=== PATIENT | female | born 1995 | race Caucasian/White ===

== ENCOUNTER 2018-04-25 11:19 | Emergency (ER) | payer OTHER, SELFPAY, BC | END 2018-04-25 13:29 | disposition home or self-care (01) | LOC: M ED 11:19 | DX: K04.7 Periapical abscess without sinus (principal) | CPT/HCPCS: 99282 ==

== ENCOUNTER → 2020-06-07 | Outpatient (REF) | payer OTHER ==
[~2020-06-07] MED LIST: AUGM500T34 PO; HYDR-3715 PO; IBUP1TAB6 PO; MAGICMW MT; TYLE325T5 PO
[2020-07-17 13:37] LABS: CHLAMYDIA DNA AMPLIFICATION NEGATIVE (NEGATIVE); GC DNA AMPLIFICATION NEGATIVE (NEGATIVE)
[2020-07-31 11:19] LABS: BASO % 0.3 % (0.0-1.0); EOS # 0.1 10^3/uL (0.0-0.5); EOS % 1.3 % (0.0-3.0); HEMATOCRIT 37.6 % (36.0-47.0); HEMOGLOBIN 12.5 g/dl (12.0-15.5); LYMPH % 19.1 % (24.0-44.0); MEAN CORPUSCULAR HEMOGLOBIN 29.4 pg (27.0-33.0); MEAN CORPUSCULAR HGB CONC 33.2 g/dl (32.0-36.5); MEAN CORPUSCULAR VOLUME 88.5 fl (80.0-96.0); MONO # 0.7 10^3/uL (0.0-0.8); MONO % 7.2 % (0.0-5.0); NEUTROPHILS # 7.4 10^3/uL (1.5-8.5); NEUTROPHILS % 71.5 % (36.0-66.0); PLATELET COUNT, AUTOMATED 232 10^3/uL (150-450); RED BLOOD COUNT 4.25 10^6/uL (4.00-5.40); WHITE BLOOD COUNT 10.3 10^3/uL (4.0-10.0)
[2020-08-02 02:38] LABS: GLUCOSE CHALLENGE TEST 1 HOUR 101 MG/DL (LESS THAN 140); HEPATITIS C VIRUS ABY INDEX 0.2 INDEX (<0.8); HIV 1&2 SCREEN CENTAUR NEGATIVE (NEGATIVE)
== END ==
LOC: M SFHCWAGY 11:17
PROVIDERS: ATTEND Advanced Practice Midwife
DX: Z12.4 Encounter for screening for malignant neoplasm of cervix (principal)

== ENCOUNTER → 2020-07-08 | Outpatient (CLI) | payer OTHER | LOC: M PLALAB 11:20 | PROVIDERS: ATTEND Advanced Practice Midwife | DX: Z34.02 Encounter for supervision of normal first pregnancy, second trimester (principal) ==

== ENCOUNTER → 2020-07-29 | Outpatient (CLI) | payer MEDICAID, OTHER ==
--- NOTE | 2020-08-08 14:51 | REP ---
OBSTETRIC SONOGRAPHY HISTORY: Supervision of for anatomy. FINDINGS: Scanning through the gravid uterus demonstrates a single living intrauterine gestation in the transverse, head to the maternal left lie. The placenta is anterior, grade 0, without evidence of previa. Three vessel umbilical cord is seen. heart rate is recorded at 149 beats per minute. Amniotic fluid is subjectively normal. Exam quality is inhibited to some degree by maternal body habitus. nose and lips, four chamber heart with left and right ventricular outflow tract views are less than optimally seen due to position and maternal body habitus. The following additional anatomic structures are identified and felt to be unremarkable: cranium, intracranial anatomy, facial profile, diaphragm, left-sided stomach, kidneys and urinary bladder, spine, upper and lower extremities. BIOMETRY CHART: BPD 4.1 cm 18 weeks 4 days Head Circumference 15.2 cm 18 weeks 2 days Abdominal Circumference 12.3 cm 18 weeks 0 days Femur Length 2.8 cm 18 weeks 4 days Humeral Length 2.7 cm 18 weeks 4 days HC/AC ratio normal 1.24 Cephalic index normal 0.76 Estimated Weight 230 g, 0 pounds 8 ounces 41st percentile for 18 weeks 2 days IMPRESSION: Viable single intrauterine gestation at 18 weeks 3 days by todays composite sonographic criteria. CHUN by todays sonography December 27, 2020. anatomic survey less than complete regarding heart and facial structures. Transverse lie. MTDD
== END ==
LOC: M WHC 09:48
PROVIDERS: ATTEND Advanced Practice Midwife
DX: O32.2XX0 Maternal care for transverse and oblique lie, not applicable or unspecified (principal); Z36.89 Encounter for other specified antenatal screening; Z3A.18 18 weeks gestation of pregnancy

== ENCOUNTER → 2020-08-11 | Outpatient (CLI) | payer OTHER ==
--- NOTE | 2020-08-11 10:31 | REP ---
INDICATION: F/U ANATOMY COMPARISON: 07/29/2020 TECHNIQUE: Transabdominal obstetrical ultrasound with color Doppler evaluation. FINDINGS: Examination demonstrates a single live intrauterine in transverse with head to maternal right presentation. motion is identified by technologist. Placenta is noted anterior and grade 1 without evidence for placenta previa or abruption. Amniotic fluid volume is normal. Cervix measures 3.1 cm in length and appears closed. No evidence for nuchal cord. Gestational age by LMP 20 weeks 1 day with CHUN 12/28/2020. Gestational age by current measurements 20 weeks 4 days with CHUN 12/25/2020. FHR equals 150 beats per minute. Estimated weight 341 grams (54thpercentile). Anatomical assessment demonstrates normal structures including cranium, facial features, lungs, four-chamber heart/ventricular outflow tracts, stomach, and kidneys/bladder. IMPRESSION: Single live intrauterine demonstrating appropriate interval growth. In conjunction with the prior examination interval assessment is complete and normal. <Electronically signed by Connor Sheth > 08/11/20 [id number]
== END ==
LOC: M WHC 09:24
PROVIDERS: ATTEND Obstetrics & Gynecology
DX: Z34.82 Encounter for supervision of other normal pregnancy, second trimester (principal)

== ENCOUNTER → 2020-10-05 | Outpatient (REF) | payer OTHER ==
[2020-10-05 14:10] LABS: HEMATOCRIT 35.4 % (36.0-47.0); HEMOGLOBIN 11.7 g/dl (12.0-15.5); MEAN CORPUSCULAR HEMOGLOBIN 29.5 pg (27.0-33.0); MEAN CORPUSCULAR HGB CONC 33.1 g/dl (32.0-36.5); MEAN CORPUSCULAR VOLUME 89.4 fl (80.0-96.0); PLATELET COUNT, AUTOMATED 219 10^3/uL (150-450); RED BLOOD COUNT 3.96 10^6/uL (4.00-5.40); WHITE BLOOD COUNT 13.5 10^3/uL (4.0-10.0)
[2020-10-05 14:35] LABS: CREATININE,RANDOM URINE 66.8 MG/DL; TOTAL PROTEIN,RANDOM URINE 13.5 MG/DL (0.0-12.0)
[2020-10-05 14:38] LABS: ALBUMIN 2.9 GM/DL (3.2-5.2); ALT/SGPT 44 U/L (12-78); BILIRUBIN,TOTAL 0.3 MG/DL (0.2-1.0); BLOOD UREA NITROGEN 6 MG/DL (7-18); CALCIUM LEVEL 8.9 MG/DL (8.5-10.1); CARBON DIOXIDE LEVEL 25 MEQ/L (21-32); CHLORIDE LEVEL 106 MEQ/L (98-107); CREATININE FOR GFR 0.56 MG/DL (0.55-1.30); GLOMERULAR FILTRATION RATE > 60.0 (>60); GLUCOSE, FASTING 98 MG/DL (70-100); LDH LACTATE DEHYDROGENASE 139 U/L (84-246); POTASSIUM SERUM 3.5 MEQ/L (3.5-5.1); SODIUM LEVEL 138 MEQ/L (136-145); TOTAL PROTEIN 6.4 GM/DL (6.4-8.2)
== END ==
LOC: M PLALAB 09:23
PROVIDERS: ATTEND Advanced Practice Midwife
DX: O16.3 Unspecified maternal hypertension, third trimester (principal); Z3A.00 Weeks of gestation of pregnancy not specified

== ENCOUNTER → 2020-11-22 | Outpatient (REF) | payer OTHER | LOC: M PLALAB 14:04 | PROVIDERS: ATTEND Obstetrics & Gynecology | DX: R35.0 Frequency of micturition (principal) ==

== ENCOUNTER → 2020-11-30 | Outpatient (REF) | payer OTHER | LOC: M PLALAB 11-29 17:13 | PROVIDERS: ATTEND Obstetrics & Gynecology | DX: Z3A.36 36 weeks gestation of pregnancy (principal) ==

== ENCOUNTER 2020-12-24 22:33 | Inpatient (IN) | payer OTHER ==
[~2020-12-24] VITALS: Ht 167.6 cm; Wt 109.3 kg
[2020-12-24 22:59] VITALS: BP 147/76
[2020-12-25] VITALS (30 sets, daily range): BP systolic 97–142; BP diastolic 52–75
[2020-12-25] MEDS ORDERED: LACTATED RINGER'S 1000 ML IV STA (00:49)
[2020-12-25] MEDS ORDERED: BUTORPHANOL 2 MG/ML INJ (J0595) IV PRN (00:55)
[2020-12-25] MEDS ORDERED: PROMETHAZINE INJ 25 MG/ML VIAL (J2550) IV PRN (00:55)
--- NOTE | 2020-12-25 01:05 | HPEPDOC ---
Obstetrical History & Physical General Date of Admission 12/25/2020 History of Present Illness Barbie is a 25yo with SIUP at 39w4d by 10wk u/s presenting with regular painful ctx increasing in frequency and intensity over the course of the day. She called me early in the day and noted regular ctx 10min apart. Since that time they have become 3-5min apart and strong, she breathes through them. Good FM. No LOF. No vaginal bleeding. 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 Past Medical History Medical History Obesity Surgical History: Tonsilectomy Family History Significant Family History: No pertinent family hx Social History Marital Status: Other (life partner) Family situation: Spouse/partner home Psychosocial History: No pertinent psych hx * Smoker: non-smoker Alcohol: Denies Drugs: denies Imunizations Tdap status: current Allergies Coded Allergies: latex (Verified Allergy, Severe, rash, swelling, 12/24/20) Medications Scheduled Amoxicillin/Potassium Clav (Augmentin 500-125 Tablet) 1 Tab Tab, 1 TAB PO BID Magic Mouthwash (First-Mouthwash Blm) 1 Ea Susp, 1 EA MT QID Scheduled PRN Acetaminophen (Tylenol) 325 Mg Tab, 1,000 MG PO for PAIN Hydrocodone/Acetaminophen (Hydrocodone-Acetamin 5-325 mg) 1 Tab Tab, 1 TAB PO Q6H PRN for PAIN Ibuprofen (Ibuprofen) 600 Mg Tab, 600 MG PO PRN PRN for PAIN with food Physical Examination Physical Examination GENERAL: Alert and oriented times three. ABDOMEN: Gravid and non-tender to touch. FETUS: Is vertex (VTX) by sterile vaginal examination (SVE) EXTREMITIES: No edema of BLE Vital Signs/I&O Vital Signs Date Time Temp Pulse Resp B/P (MAP) Pulse Ox O2 Delivery O2 Flow Rate FiO2 12/25/20 00:39 97.2 12/24/20 22:59 82 18 147/76 (99) Pertinent Laboratoy Data Blood Type: B+ RBC Antibody Screen: Negative HIV: Negative Hepatitis B: Negative Hepatitis C: Negative Rapid Plasma Reagin: Nonreactive Rubella: Immune Chlamydia/Gonorrhea: Negative Group B Streptococcus: Negative Glucose Tolerance Test: 97 Anatomy Ultrasound Ultrasound Date: Jul 29, 2020 Placenta Location: Anterior Normal Anatomy: Yes Placenta Previa: No Other Ultrasounds 08/11 anatomy follow up, complete wnl Vaginal Examination Dilation: 4 cm Effacement: 90% Station: -2 Cervical Consistency: Soft Cervical Position: Middle Presentation: Cephalic presentation Assessment Heart Rate (FHR): 135 Variability: Moderate Accelerations: Positive Decelerations: None Tocometer Contractions: Yes Frequency: regular, every 2-5 min. Duration: greater than 60 seconds Strength: palpated as moderate Assessment/Plan Assessment Barbie is a 25yo with SIUP at 39w4d by 10wk u/s in active labor with SCE 4/90/-2 from 3/80/-2 only 2hr prior having regular painful ctx q3-5min. 1st bp mild range other vitals wnl, no sx pre-E. Cephalic by SCE. Cat I FHRT. PMhx and PNC only significant for obesity with normal glucose testing. Plan Admit and orient. Data Warehousing Engineer and consent. Diet: clear liquids Group B Streptococcus (GBS) negative Labs and intravenous (IV) per unit protocol. Lactated Ringers (LR): Bolus 800 mL, then at 125 mL/hr. Anticipate normal spontaneous delivery () 2mg IV stadol every 4hr prn pain with 12.5mg IV phenergan, candidate for epid ural in active labor Christine Lemos MD Dec 25, 2020 01:04
[2020-12-25 01:22] LABS: HEMATOCRIT 36.9 % (36.0-47.0); HEMOGLOBIN 12.5 g/dl (12.0-15.5); MEAN CORPUSCULAR HEMOGLOBIN 28.9 pg (27.0-33.0); MEAN CORPUSCULAR HGB CONC 33.9 g/dl (32.0-36.5); MEAN CORPUSCULAR VOLUME 85.2 fl (80.0-96.0); PLATELET COUNT, AUTOMATED 243 10^3/uL (150-450); RED BLOOD COUNT 4.33 10^6/uL (4.00-5.40); WHITE BLOOD COUNT 15.7 10^3/uL (4.0-10.0)
[2020-12-25] MEDS ORDERED: FENTANYL 2MCG/ML ROPIVACAINE 0.2% IN 0.9% NACL 100ML IVBAG As Ordered ONE (04:51)
[2020-12-25] MEDS ORDERED: OXYTOCIN 30 UNITS IN 0.9% NaCl 500ML IV BAG (J2590) As Ordered ONE ×2 (05:27→08:50)
--- NOTE | 2020-12-25 07:05 | IPNPDOC ---
Text Note Date of Service The patient was seen on 12/25/20. NOTE Intrapartum Note Barbie is doing well overall, by RN check was felt to have reducible anterior lip and pushed for approximately 1hr with no real progress so stopped and she has been laboring down. Still declining epidural. Vitals normotensive to occasional mild range, afebrile Cat I-II FHRT, currently has min arun but +accels and no decels SCE: anterior lip with very thin rim posteriorly so technically 9cm/C/-1 station, OP No further pushing until cervix fully dilates Patient to try "hands and knees" positioning to attempt rotation of fetus Patient asking for stadol but discussed cannot give currently due to minimal variability on FHRT, but still a candidate for epidural if desired Will plan to recheck in 1-2hr or earlier as indicated Safe to proceed Christine Lemos MD VS,Mo, I+O VS, Mo I+O Laboratory Tests 12/25/20 01:00 Vital Signs Date Time Temp Pulse Resp B/P (MAP) Pulse Ox O2 Delivery O2 Flow Rate FiO2 12/25/20 04:10 97.7 89 18 142/63 (89) Christine Lemos MD Dec 25, 2020 07:05
[2020-12-25] MEDS ORDERED: BICITRA 30ML SOLN UDC PO STA (08:19)
[2020-12-25] MEDS ORDERED: ceFAZolin SOD 2 GM in IV 1 EA IV STA (08:19)
--- NOTE | 2020-12-25 08:24 | IPNPDOC ---
Text Note Date of Service The patient was seen on 12/25/20. NOTE Decision for section Patient has epidural, now comfortable. Vitals wnl afebrile Persistent Cat II FHRT for min arun with +accels, -decels SCE: unchanged 9/C/-1 with thick anterior portion Discussed with patient that it has now been at least 3 hours with no cervical change and since there is persistent Cat II FHRT, I recommend PLTCS which she is amenable to. Signed consent forms for PLTCS and blood transfusion, all r/b/a discussed Bicitra Anceph 2g IV NPO Will proceed to OR when team is ready Christine Lemos MD VS,Mo, I+O VS, Mo I+O Laboratory Tests 12/25/20 01:00 Vital Signs Date Time Temp Pulse Resp B/P (MAP) Pulse Ox O2 Delivery O2 Flow Rate FiO2 12/25/20 07:44 121 123/56 (78) 12/25/20 07:09 98.4 18 Christine Lemos MD Dec 25, 2020 08:24
[2020-12-25] MEDS ORDERED: NALOXONE INJ 0.4MG/1ML VIAL (J2310 PER 1MG) IV PRN ×3 (08:25→09:05)
[2020-12-25] MEDS ORDERED: LACTATED RINGER'S 1000 ML IV PRN (08:25)
[2020-12-25] MEDS ORDERED: REFRIGERATOR IV KEYS XX PRN (08:25)
[2020-12-25] MEDS ORDERED: FENTANYL/ROPIVACAINE/NACL BAG 100 ML EPIDURAL SCH (08:25)
[2020-12-25] MEDS ORDERED: diphenhydrAMINE 50MG/ML VIAL (J1200) IV PRN ×2 (08:25→09:05)
[2020-12-25] MEDS ORDERED: ePHEDrine SULFATE 25 MG/5 ML(5MG/ML) SYRINGE IV PRN (08:25)
[2020-12-25] MEDS ORDERED: EPIDURAL COMMENT XX SCH (08:25)
[2020-12-25] MEDS ORDERED: EPIDURAL/PCA KEYS XX PRN (08:25)
[2020-12-25] MEDS ORDERED: ONDANSETRON 4MG/2ML VIAL IV PRN ×3 (08:25→10:20)
[2020-12-25] MEDS: LR 1,000 ML IV SCH ×3 (08:49→16:49)
[2020-12-25] MEDS ORDERED: MORPHINE PRES-FREE INJ 10 MG/10 ML VIAL (J2274) As Ordered ONE (08:49)
[2020-12-25] MEDS ORDERED: KETOROLAC 60MG 2ML VIAL As Ordered ONE (08:50)
[2020-12-25] MEDS ORDERED: LIDOCAINE 2% W/EPINEPHRINE 20ML VIAL **PRES FREE As Ordered ONE (08:50)
[2020-12-25] MEDS ORDERED: ONDANSETRON 4MG/2ML VIAL As Ordered ONE (08:50)
[2020-12-25] MEDS ORDERED: dexameTHASONE 4 MG/ML 1ML VIAL (J1100 PER 1MG) As Ordered ONE (08:50)
[2020-12-25] MEDS ORDERED: SODIUM BICARBONATE 8.4% INJ 50MEQ 50 ML VIAL As Ordered ONE (08:50)
[2020-12-25] MEDS ORDERED: PHENYLephrine 500MCG 5ML (100MCG/ML) SYRINGE As Ordered ONE ×2 (08:58→09:33)
[2020-12-25] MEDS ORDERED: METOCLOPRAMIDE INJ 10MG/2ML VIAL (J2765 PER 1) IV PRN (09:05)
[2020-12-25] MEDS ORDERED: PERCOCET 5MG/325MG TAB PO PRN ×2 (10:15)
[2020-12-25] MEDS ORDERED: MEASLES,MUMPS,RUBELLA VACCINE INJ (MMR-II) (90707) SC SCH (10:15)
[2020-12-25] MEDS ORDERED: SIMETHICONE 80MG CHEW TAB PO PRN (10:15)
[2020-12-25] MEDS ORDERED: RHOGAM 300 MCG (1500 IU) INJ (J2790) IM SCH (10:15)
[2020-12-25] MEDS ORDERED: LR 1,000 ML IV SCH (10:20)
[2020-12-25] MEDS ORDERED: KETOROLAC 30 MG/ML 1ML VIAL IV PRN (10:20)
[2020-12-25] MEDS ORDERED: oxyCODONE 5MG TAB PO PRN (10:20)
[2020-12-25] MEDS ORDERED: fentaNYL 100 MCG/2 ML INJECTION (J3010) IV PRN (10:20)
[2020-12-25] MEDS ORDERED: OXYTOCIN DRIP 30 UNITS in IV 1 EA IV SCH (10:30)
--- NOTE | 2020-12-25 12:36 | RO ---
OPERATIVE NOTE DATE OF OPERATION: 12/25/2020 PREOPERATIVE DIAGNOSIS: Arrest of dilation in the setting of persistent category 2 heart rate tracing. POSTOPERATIVE DIAGNOSIS: Arrest of dilation in the setting of persistent category 2 heart rate tracing, in addition, asynclitic presentation. PROCEDURE: Primary low transverse section. SURGEON: Christine Lemos MD MEN'S BASKETBALL COACH: Thao Hayward DO ANESTHESIA: INDICATION FOR OPERATION: Barbie is a 25-year-old, G1, now P 1-0-0-1, who presented at 39 weeks, 4 days with regular, painful contractions that have been increasing in intensity over the course of the day. She progressed on her own, had spontaneous rupture of membranes, made it to 9 cm but then had no further progression after that for over three hours and developed a persistent category 2 heart rate tracing during that time. MATERIAL FORWARDED TO THE LAB FOR EXAMINATION: None. DESCRIPTION OF FINDINGS: Female infant in cephalic presentation, asynclitic, Apgars 9 and 9, weight 3410 gm or 7 lb, 8 oz. Normal appearing uterus. INFECTION CLASSIFICATION: 2. ESTIMATED BLOOD LOSS: 500 mL URINE OUTPUT: 100 mL of clear yellow urine. IV FLUIDS: 1950 mL of lactated Ringer's. DESCRIPTION OF PROCEDURE: After obtaining informed consent, the patient was taken to the operating room. She had a Adorno catheter in place and had received an epidural recently. Bilateral sequential compression devices were placed. She was prepped and draped in normal sterile fashion in the dorsal supine position with a left lateral tilt. A timeout was performed to confirm patient name, date of , procedure and indication. The team was in agreement. She received two grams of IV Ancef prophylactically. Epidural anesthesia was found to be adequate. A Pfannenstiel skin incision was made with the scalpel and carried through to the underlying layer of fascia using the Bovie cautery. The fascia was incised in the midline and the incision was extended laterally with Sifuentes scissors. Superior and inferior aspects of the fascial incision were grasped with Attila clamps, elevated and the underlying rectus muscles were dissected off bluntly and sharply. The peritoneum was entered digitally and the rectus muscles were in the midline. The peritoneal incision was extended superiorly and inferiorly with good visualization of the bladder. Bladder blade was inserted and the vesicouterine peritoneum was identified, grasped with pickups and entered sharply with the Metzenbaum scissors. The incision was extended laterally and the bladder flap was created digitally. A Mobius retractor was used. The lower uterine segment was scored in a transverse fashion with a scalpel. The uterus was entered bluntly and the incision was extended with traction. The 's head was elevated to the level of the incision. The FSE was still in place so that was brought up out of the body with the baby and fundal pressure was applied. The head was delivered atraumatically in WON position. It was asynclitic in the pelvis. The anterior shoulder, posterior shoulder and corpus were delivered without difficulty. The nose and mouth were suctioned with bulb suction. Cord was clamped x2 and cut. Infant was handed off to the awaiting team. FSE was removed at the warmer and it was counted in addition with all of the other surgical counts. The placenta was removed with traction on the umbilical cord and uterine massage and the uterus was left in situ and cleared of all clot and debris. The uterine incision was repaired with 0 Vicryl suture in a running locking fashion. A second layer of 0 Monocryl was used to close the hysterotomy incision in imbricating fashion. The uterine incision was inspected. Hemostasis was noted. The gutters were cleared of clots. At that point, the Mobius retractor was removed. [place] was applied along the hysterotomy incision and was noted to be hemostatic. The peritoneum was closed using a 3-0 Vicryl suture in a running fashion. The rectus muscles needed no reapproximation. The fascia was reapproximated with 0 Vicryl suture in a running fashion. The subcutaneous tissue was copiously irrigated. Tamar's fascia was reapproximated using 3-0 Vicryl suture in a running fashion. Skin edges were reapproximated using three inverted interrupted stitches using 3-0 Vicryl suture followed by a running subcuticular stitch using 4-0 Monocryl suture. The incision was cleaned using a wet lap, dried with a dry lap. Steri-Strips were applied in the usual fashion perpendicular to the Pfannenstiel incision and Optifoam dressing was applied overlying. The vagina was cleared of all blood clot without active bleeding noted. The fundus was firm at U minus 2 cm. The sponge, lap and needle counts were correct x2. The procedure was without complications and the patient tolerated the procedure well. The patient was taken to the recovery room on labor and delivery in stable condition.
[2020-12-25] MEDS: KETOROLAC 30 MG/ML 1ML VIAL IV SCH ×2 (16:12→22:16)
[2020-12-25] MEDS: DOCUSATE SODIUM 100MG CAPSULE PO SCH (21:29)
[2020-12-26] MEDS: LR 1,000 ML IV SCH (00:49)
[2020-12-26 02:00] VITALS: BP 139/60
[2020-12-26] MEDS: KETOROLAC 30 MG/ML 1ML VIAL IV SCH (04:16)
[2020-12-26 06:00] VITALS: BP 113/72
[2020-12-26 08:22] LABS: HEMATOCRIT 31.1 % (36.0-47.0); MEAN CORPUSCULAR HEMOGLOBIN 28.9 pg (27.0-33.0); MEAN CORPUSCULAR HGB CONC 32.5 g/dl (32.0-36.5); MEAN CORPUSCULAR VOLUME 88.9 fl (80.0-96.0); PLATELET COUNT, AUTOMATED 195 10^3/uL (150-450); WHITE BLOOD COUNT 15.4 10^3/uL (4.0-10.0)
[2020-12-26 08:25] LABS: HEMOGLOBIN 10.1 g/dl (12.0-15.5)
[2020-12-26] MEDS: PRENATAL VITAMINS CHEWABLE TABLET PO SCH (08:44)
[2020-12-26] MEDS: DOCUSATE SODIUM 100MG CAPSULE PO SCH ×2 (08:44→20:24)
[2020-12-26 10:00] VITALS: BP 112/73
--- NOTE | 2020-12-26 10:21 | IPNPDOC ---
Progress Note Date of Service: Dec 26, 2020 Day#: 1 Progress Note POD 1 SUBJECT: Barbie is a 25yo [id number] s/p uncomplicated PLTCS at 39w4d for arrest of dilation in the setting of persistent Cat II FHRT when she presented in labor on 12/25/20, doing well /post-op day #1. She has been ambulating, voiding spontaneously without issue and tolerating regular diet. Breast feeding and pumping. Reports lochia is like a normal period. No f/c/n/v/CP/SOB/lightheadedness/dizziness. Pain very well controlled. OBJECTIVE: VITAL SIGNS: Within normal limits, afebrile. Alert and oriented times three. Abdomen: Fundus firm at U-2. Soft, appropriately tender to palpation with no rebound/guarding. Optifoam dressing overlies pfannenstiel which is clean/dry/intact Extremities: no pain with palpation of calves Labs: pre-op H/H: 12.5/36.9 post-op H/H: 10.1/31.1 ASSESSMENT: Barbie is a 25yo [id number] s/p uncomplicated PLTCS at 39w4d for arrest of dilation in the setting of persistent Cat II FHRT when she presented in labor on 12/25/20, doing well /post-op day #1. Vitals within normal limits, afebrile, hemodynamically stable with no evidence of infection. PLAN: 1. Routine post-op care 2. Perocet and Motrin for pain. 3. Encourage breast feeding and ambulation. 4. Regular diet 5. Possible discharge tomorrow if meeting all criteria Christine Lemos MD VS, I&O, 24H, [facility] Vital Signs/I&O Vital Signs Date Time Temp Pulse Resp B/P (MAP) Pulse Ox O2 Delivery O2 Flow Rate FiO2 12/26/20 10:00 98.1 78 18 112/73 (86) 98 12/26/20 06:00 Room Air I&O- Last 24 Hours up to 6 AM 12/26/20 06:00 Intake Total 450 ml Output Total 2575 ml Balance -2125 ml Laboratory Data 24H LABS Laboratory Tests 2 12/26/20 06:51: Nucleated Red Blood Cells % (auto) 0.0 CBC/BMP Laboratory Tests 12/26/20 06:51 Christine Lemos MD Dec 26, 2020 10:21
[2020-12-26] MEDS ORDERED: IBUP80TA PO (11:45)
[2020-12-26] MEDS ORDERED: PERCOCET PO (11:45)
[2020-12-26] MEDS ORDERED: DOK1CAP7 PO (11:45)
[2020-12-26] MEDS: IBUPROFEN 800 MG TAB PO SCH ×2 (11:54→20:24)
[2020-12-26 14:00] VITALS: BP 121/67
[2020-12-26 17:59] VITALS: BP 118/61
[2020-12-26 22:02] VITALS: BP 116/68
[2020-12-27 02:14] VITALS: BP 116/77
[2020-12-27] MEDS: IBUPROFEN 800 MG TAB PO SCH (05:30)
[2020-12-27 06:00] VITALS: BP 121/71
[2020-12-27] MEDS: DOCUSATE SODIUM 100MG CAPSULE PO SCH (07:57)
[2020-12-27] MEDS: PRENATAL VITAMINS CHEWABLE TABLET PO SCH (07:57)
--- NOTE | 2020-12-27 11:17 | IPNPDOC ---
Progress Note Date of Service: Dec 27, 2020 Day#: 2 Progress Note POD 2 SUBJECT: Barbie is a 25yo [id number] s/p uncomplicated PLTCS at 39w4d for arrest of dilation in the setting of persistent Cat II FHRT when she presented in labor on 12/25/20, doing well /post-op day #2. She has been ambulating, voiding spontaneously without issue and tolerating regular diet. Breast feeding and pumping. Reports lochia is like a normal period. No f/c/n/v/CP/SOB/lightheadedness/dizziness. Pain well controlled. OBJECTIVE: VITAL SIGNS: Within normal limits, afebrile. Alert and oriented times three. Abdomen: Fundus firm at U-2. Soft, appropriately tender to palpation with no rebound/guarding. Optifoam dressing overlies pfannenstiel which is clean/dry/intact Extremities: no pain with palpation of calves Labs: pre-op H/H: 12.5/36.9 post-op H/H: 10.1/31.1 ASSESSMENT: Barbie is a 25yo [id number] s/p uncomplicated PLTCS at 39w4d for arrest of dilation in the setting of persistent Cat II FHRT when she presented in labor on 12/25/20, doing well /post-op day #2. Vitals within normal limits, afebrile, hemodynamically stable with no evidence of infection. PLAN: 1. Discharge home today 2. Perocet and Motrin for pain. 3. Encourage breast feeding and ambulation. 4. Regular diet 5. Vaginal rest and no heavy lifting for 6 weeks 6. Remove optifoam dressing in 1 week, keep incision clean and dry 7. Follow up in 2 weeks for incision check Christine Lemos MD VS, I&O, 24H, Fishbone Vital Signs/I&O Vital Signs Date Time Temp Pulse Resp B/P (MAP) Pulse Ox O2 Delivery O2 Flow Rate FiO2 12/27/20 06:25 20 12/27/20 06:00 98.9 83 121/71 (88) 12/27/20 02:14 100 Room Air Christine Lemos MD Dec 27, 2020 11:17
--- NOTE | 2020-12-27 11:22 | DS.PDOC ---
Discharge Summary General Date of Admission Dec 25, 2020 at 00:52 Date of Discharge December 27, 2020 Attending Physician: Christine Lemos MD Discharge Summary PROCEDURES PERFORMED DURING STAY: primary low transverse section ADMITTING DIAGNOSES: 1. active labor at term DISCHARGE DIAGNOSES: 1. active labor at term 2. arrest of dilation in the setting of persistent Cat II FHRT, delivered via COMPLICATIONS/CHIEF COMPLAINT: Labor Check. HISTORY OF PRESENT ILLNESS/HOSPITAL COURSE: Barbie is a 25yo [id number] s/p uncomplicated PLTCS at 39w4d for arrest of dilation in the setting of persistent Cat II FHRT when she presented in labor on 12/25/20, doing well /post-op day #2. Vitals within normal limits, afebrile, hemodynamically stable with no evidence of infection. DISCHARGE MEDICATIONS: Please see below. ALLERGIES: Please see below. PHYSICAL EXAMINATION ON DISCHARGE: VITAL SIGNS: Within normal limits, afebrile. Alert and oriented times three. Abdomen: Fundus firm at U-2. Soft, appropriately tender to palpation with no rebound/guarding. Optifoam dressing overlies pfannenstiel which is clean/dry/intact Extremities: no pain with palpation of calves LABORATORY DATA: Please see below. pre-op H/H: 12.5/36.9 post-op H/H: 10.1/31.1 DIET: regular DISCHARGE PLAN/INSTRUCTIONS: 1. Discharge home today 2. Perocet and Motrin for pain. 3. Encourage breast feeding and ambulation. 4. Regular diet 5. Vaginal rest and no heavy lifting for 6 weeks 6. Remove optifoam dressing in 1 week, keep incision clean and dry 7. Follow up in 2 weeks for incision check DISCHARGE CONDITION: Stable TIME SPENT ON DISCHARGE: Greater than 20 minutes. Christine Lemos MD Vital Signs/I&Os Vital Signs Date Time Temp Pulse Resp B/P (MAP) Pulse Ox O2 Delivery O2 Flow Rate FiO2 12/27/20 06:25 20 12/27/20 06:00 98.9 83 121/71 (88) 12/27/20 02:14 100 Room Air Discharge Medications Scheduled Docusate Sodium (Dok) 100 Mg Capsule, 100 MG PO BID Ibuprofen (Ibuprofen) 800 Mg Tablet, 800 MG PO Q8H Magic Mouthwash (First-Mouthwash Blm) 1 Ea Susp, 1 EA MT QID Scheduled PRN Oxycodone/Acetaminophen (Oxycodone-Acetaminophen 5-325) 1 Each Tablet, 1 TAB PO Q4H PRN for MILD/MODERATE PAIN (PS 1-7) Allergies Coded Allergies: latex (Verified Allergy, Severe, rash, swelling, 12/24/20) Christine Lemos MD Dec 27, 2020 11:22
== END 2020-12-27 11:30 | disposition home or self-care (01) | DRG 540 ==
LOC: M LDO 22:33 → M LDI 12-25 00:52 → M OBS 12-25 11:00
PROVIDERS: ADMIT Obstetrics & Gynecology; ATTEND Obstetrics & Gynecology
PROC: 10D00Z1 Extraction of Products of Conception, Low, Open Approach (ICD-10-PCS; principal; 2020-12-25 08:30)
DX: O62.0 Primary inadequate contractions (principal); O32.8XX0 Maternal care for other malpresentation of fetus, not applicable or unspecified; Z37.0 Single live birth; Z3A.39 39 weeks gestation of pregnancy; O76 Abnormality in fetal heart rate and rhythm complicating labor and delivery; Z91.040 Latex allergy status

== ENCOUNTER 2020-12-30 21:02 | Emergency (ER) | payer OTHER ==
[~2020-12-30] VITALS: Ht 167.6 cm; Wt 104.8 kg
[~2020-12-30 21:02] MED LIST changes: +DOK1CAP7 PO; +IBUP80TA PO; +PERCOCET PO
[2020-12-30] MEDS ORDERED: GNP28TAB2 PO (21:15)
[2020-12-30 22:21] LABS: BASO % 0.2 % (0.0-1.0); EOS # 0.1 10^3/uL (0.0-0.5); EOS % 0.5 % (0.0-3.0); HEMATOCRIT 35.3 % (36.0-47.0); HEMOGLOBIN 11.5 g/dl (12.0-15.5); LYMPH # 1.4 10^3/uL (1.5-5.0); LYMPH % 10.9 % (24.0-44.0); MEAN CORPUSCULAR HEMOGLOBIN 28.5 pg (27.0-33.0); MEAN CORPUSCULAR HGB CONC 32.6 g/dl (32.0-36.5); MEAN CORPUSCULAR VOLUME 87.6 fl (80.0-96.0); MONO # 0.6 10^3/uL (0.0-0.8); MONO % 4.5 % (2.0-8.0); NEUTROPHILS # 10.9 10^3/uL (1.5-8.5); NEUTROPHILS % 83.4 % (36.0-66.0); PLATELET COUNT, AUTOMATED 276 10^3/uL (150-450); RED BLOOD COUNT 4.03 10^6/uL (4.00-5.40); WHITE BLOOD COUNT 13.1 10^3/uL (4.0-10.0)
[2020-12-30] MEDS ORDERED: NS 1,000 ML IV ONE (22:40)
[2020-12-30 22:45] LABS: ALBUMIN 2.7 GM/DL (3.2-5.2); BILIRUBIN,DIRECT 0.1 MG/DL (0.0-0.2); BILIRUBIN,TOTAL 0.3 MG/DL (0.2-1.0); TOTAL PROTEIN 6.6 GM/DL (6.4-8.2)
--- NOTE | 2020-12-30 23:27 | REPVR ---
PROCEDURE INFORMATION: Exam: US Abdomen, Limited; Right Upper Quadrant Exam date and time: 12/30/2020 11:07 PM Age: 25 years old Clinical indication: Abdominal pain; Epigastric; Additional info: Ruq pain ? biliary colic TECHNIQUE: Imaging protocol: US abdomen. Real time ultrasound with image documentation. Limited exam focused on the right upper quadrant. COMPARISON: No relevant prior studies available. FINDINGS: Liver: The liver demonstrates no focal defects. Gallbladder: The gallbladder demonstrates no wall thickening measuring 2-3 mm. There are numerous small shadowing stones in the gallbladder. There is a negative sono Tirado's sign. Common bile duct: The CBD measures 5 mm. Pancreas: The pancreatic is normal. Right kidney: The right kidney is normal measuring 12.6 cm with no hydronephrosis. IMPRESSION: 1. Cholelithiasis with numerous small shadowing stones. No wall thickening and a negative sono Tirado's sign. 2. Otherwise negative right upper quadrant sonogram. Electronically signed by: Ben Arguello On 12/30/2020 23:28:07 PM
[2020-12-31 00:24] VITALS: BP 156/84
== END 2020-12-31 00:28 | disposition home or self-care (01) ==
LOC: M ED 21:02
DX: K80.70 Calculus of gallbladder and bile duct without cholecystitis without obstruction (principal); Z91.040 Latex allergy status

== ENCOUNTER 2021-11-18 12:56 | Emergency (ER) | payer OTHER ==
[~2021-11-18] VITALS: Ht 167.6 cm; Wt 93.1 kg
[~2021-11-18 12:56] MED LIST changes: +DOK1CAP4 PO; -DOK1CAP7 PO; +GNP28TAB2 PO
[2021-11-18] MEDS ORDERED: DEBL1TAB (13:06)
[2021-11-18 14:07] LABS: BASO % 0.3 % (0.0-1.0); EOS % 0.2 % (0.0-3.0); HEMATOCRIT 40.2 % (36.0-47.0); HEMOGLOBIN 13.3 g/dl (12.0-15.5); LYMPH # 1.1 10^3/uL (1.5-5.0); LYMPH % 11.6 % (24.0-44.0); MEAN CORPUSCULAR HEMOGLOBIN 29.4 pg (27.0-33.0); MEAN CORPUSCULAR HGB CONC 33.1 g/dl (32.0-36.5); MEAN CORPUSCULAR VOLUME 88.7 fl (80.0-96.0); MONO # 0.6 10^3/uL (0.0-0.8); MONO % 5.9 % (2.0-8.0); NEUTROPHILS # 7.9 10^3/uL (1.5-8.5); NEUTROPHILS % 81.7 % (36.0-66.0); PLATELET COUNT, AUTOMATED 255 10^3/uL (150-450); RED BLOOD COUNT 4.53 10^6/uL (4.00-5.40); WHITE BLOOD COUNT 9.6 10^3/uL (4.0-10.0)
[2021-11-18 14:27] LABS: HCG, SERUM QUALITATIVE NEGATIVE (NEGATIVE)
[2021-11-18 14:30] LABS: ALBUMIN 3.7 GM/DL (3.2-5.2); ALT/SGPT 449 U/L (12-78); BILIRUBIN,DIRECT 0.9 MG/DL (0.0-0.2); BILIRUBIN,TOTAL 1.7 MG/DL (0.2-1.0); BLOOD UREA NITROGEN 10 MG/DL (7-18); CALCIUM LEVEL 9.3 MG/DL (8.5-10.1); CARBON DIOXIDE LEVEL 29 MEQ/L (21-32); CHLORIDE LEVEL 105 MEQ/L (98-107); CREATININE FOR GFR 0.54 MG/DL (0.55-1.30); GLOMERULAR FILTRATION RATE > 60.0 (>60); GLUCOSE, FASTING 128 MG/DL (70-100); LIPASE 66 U/L (73-393); POTASSIUM SERUM 4.1 MEQ/L (3.5-5.1); SODIUM LEVEL 139 MEQ/L (136-145)
[2021-11-18] MEDS ORDERED: ISOVUE-370 76% 100ML VIAL As Ordered ONE (14:44)
[2021-11-18 18:47] VITALS: BP 109/73
[2021-11-18] MEDS ORDERED: ONDA4TAB6 PO (18:50)
[2021-11-18] MEDS ORDERED: KETO10TAB PO (18:50)
[2021-11-20 11:05] LABS: HEPATITIS B SURFACE ANTIGEN NEGATIVE (NEGATIVE)
[2021-11-20 11:32] LABS: HEPATITIS B CORE ANTIBODY IGM NEGATIVE (NEGATIVE); HEPATITIS C VIRUS ABY INDEX < 0.0 INDEX (<0.8)
== END 2021-11-18 19:05 | disposition home or self-care (01) ==
LOC: M ED 12:56
DX: N83.201 Unspecified ovarian cyst, right side (principal); K80.20 Calculus of gallbladder without cholecystitis without obstruction; R94.5 Abnormal results of liver function studies; Z91.040 Latex allergy status; Z79.3 Long term (current) use of hormonal contraceptives; F17.210 Nicotine dependence, cigarettes, uncomplicated
CPT/HCPCS: 36415; 74177; 76705; 80048; 80076; 81001; 83690; 84703; 85025; 86705; 86709; 86803; 87340; 99284; Q9967

== ENCOUNTER → 2021-12-29 | Outpatient (CLI) | payer OTHER ==
[~2021-12-29] MED LIST changes: +DEBL1TAB; +KETO10TAB PO; +ONDA4TAB6 PO
== END ==
LOC: M WHC 10:26
PROVIDERS: ATTEND Obstetrics & Gynecology
DX: D27.0 Benign neoplasm of right ovary (principal)

== ENCOUNTER → 2021-12-29 | Outpatient (CLI) | payer OTHER ==
[2021-12-29 13:39] LABS: HEMATOCRIT 40.7 % (36.0-47.0); HEMOGLOBIN 13.7 g/dl (12.0-15.5); MEAN CORPUSCULAR HEMOGLOBIN 29.9 pg (27.0-33.0); MEAN CORPUSCULAR HGB CONC 33.7 g/dl (32.0-36.5); MEAN CORPUSCULAR VOLUME 88.9 fl (80.0-96.0); PLATELET COUNT, AUTOMATED 247 10^3/uL (150-450); RED BLOOD COUNT 4.58 10^6/uL (4.00-5.40); WHITE BLOOD COUNT 6.8 10^3/uL (4.0-10.0)
[2021-12-29 15:20] LABS: ALT/SGPT 26 U/L (12-78); AMYLASE 52 U/L (25-115); BILIRUBIN,TOTAL 0.4 MG/DL (0.2-1.0); BLOOD UREA NITROGEN 9 MG/DL (7-18); CALCIUM LEVEL 9.9 MG/DL (8.5-10.1); CARBON DIOXIDE LEVEL 30 MEQ/L (21-32); CHLORIDE LEVEL 106 MEQ/L (98-107); CREATININE FOR GFR 0.58 MG/DL (0.55-1.30); GLOMERULAR FILTRATION RATE > 60.0 (>60); GLUCOSE, FASTING 77 MG/DL (70-100); LIPASE 106 U/L (73-393); POTASSIUM SERUM 4.5 MEQ/L (3.5-5.1); SODIUM LEVEL 140 MEQ/L (136-145); TOTAL PROTEIN 7.4 GM/DL (6.4-8.2)
[2021-12-29 15:27] LABS: CA 125 8.4 U/ML (<30.2)
== END ==
LOC: M PLALAB 11:33
PROVIDERS: ATTEND Obstetrics & Gynecology
DX: N83.201 Unspecified ovarian cyst, right side (principal)

== ENCOUNTER 2022-06-11 08:29 | Day surgery (SDC) | payer OTHER ==
[~2022-06-11] VITALS: Ht 167.6 cm; Wt 92.5 kg
[~2022-06-11 08:29] MED LIST changes: +ALL10TAB2 PO; +CLAR10CA3 PO; -DEBL1TAB; +DEBL1TAB PO; +LOPE2TAB12 PO
[2022-06-11] MEDS ORDERED: LR 1,000 ML IV SCH ×3 (08:35→16:25)
[2022-06-11 08:56] LABS: HEMATOCRIT 43.2 % (36.0-47.0); MEAN CORPUSCULAR HEMOGLOBIN 30.3 pg (27.0-33.0); MEAN CORPUSCULAR HGB CONC 32.4 g/dl (32.0-36.5); MEAN CORPUSCULAR VOLUME 93.5 fl (80.0-96.0); PLATELET COUNT, AUTOMATED 159 10^3/uL (150-450); RED BLOOD COUNT 4.62 10^6/uL (4.00-5.40); WHITE BLOOD COUNT 7.8 10^3/uL (4.0-10.0)
[2022-06-11 09:21] LABS: HCG, SERUM QUALITATIVE NEGATIVE (NEGATIVE)
[2022-06-11] MEDS ORDERED: propofoL 200 MG/20 ML VIAL As Ordered ONE (09:43)
[2022-06-11] MEDS ORDERED: ROCURONIUM BROMIDE 50 MG/5 ML VIAL As Ordered ONE ×2 (09:44→10:28)
[2022-06-11] MEDS ORDERED: LIDOCAINE 2% 100MG/5ML SDV (FOR ANES.) As Ordered ONE (09:44)
[2022-06-11] MEDS ORDERED: ACETAMINOPHEN 1000MG 100ML IV BTL (OFIRMEV) (J0131 PER 10MG) As Ordered ONE (09:45)
[2022-06-11] MEDS ORDERED: MIDAZOLAM INJ 2MG/2ML VIAL (J2250 PER 1MG) As Ordered ONE (09:46)
[2022-06-11] MEDS ORDERED: fentaNYL 250 MCG/5 ML INJECTION As Ordered ONE (09:46)
[2022-06-11] MEDS ORDERED: HYDROmorphone HCL 2MG/ML 1ML VIAL As Ordered ONE (09:46)
[2022-06-11] MEDS ORDERED: BUPIVACAINE/EPIN 0.25% 30 ML VIAL As Ordered ONE (09:51)
[2022-06-11] MEDS ORDERED: METHYLENE BLUE 0.5% (5MG/ML) 10 ML AMP (PROVAYBLUE) As Ordered ONE (09:51)
[2022-06-11] MEDS ORDERED: dexameTHASONE 4 MG/ML 1ML VIAL (J1100 PER 1MG) As Ordered ONE (10:18)
[2022-06-11] MEDS ORDERED: METOCLOPRAMIDE INJ 10MG/2ML VIAL (J2765 PER 1) As Ordered ONE (10:19)
[2022-06-11] MEDS ORDERED: ONDANSETRON 4MG 2ML VIAL As Ordered ONE (10:19)
[2022-06-11] MEDS ORDERED: KETOROLAC 60MG 2ML VIAL As Ordered ONE (12:26)
[2022-06-11] MEDS ORDERED: SUGAMMADEX SODIUM 500 MG/5 ML VIAL (BRIDION) As Ordered ONE (12:34)
[2022-06-11] MEDS ORDERED: ceFAZolin 2 GM/D5W 50 ML IV BAG (J0690 PER 500MG) As Ordered ONE (14:09)
[2022-06-11] MEDS ORDERED: fentaNYL 100 MCG/2 ML INJECTION IV PRN (14:30)
[2022-06-11] MEDS ORDERED: oxyCODONE 5MG TAB PO PRN (14:30)
[2022-06-11] MEDS ORDERED: ONDANSETRON 4MG 2ML VIAL IV PRN (14:30)
[2022-06-11] MEDS ORDERED: ONDA4TAB6 PO (15:09)
[2022-06-11] MEDS ORDERED: IBUP80TA PO (15:09)
[2022-06-11] MEDS ORDERED: ACET-716 PO (15:10)
[2022-06-11] MEDS ORDERED: COLA100C5 PO (15:10)
[2022-06-11 17:55] VITALS: BP 117/70
== END 2022-06-11 18:00 | disposition home or self-care (01) ==
LOC: M SDC 08:29
PROVIDERS: ATTEND Obstetrics & Gynecology
DX: K80.10 Calculus of gallbladder with chronic cholecystitis without obstruction (principal); N83.291 Other ovarian cyst, right side; K21.9 Gastro-esophageal reflux disease without esophagitis; Z79.899 Other long term (current) drug therapy; Z91.040 Latex allergy status
CPT/HCPCS: 36415; 47562; 58662; 84703; 85027; 86850; 86900; 86901; 88304; 88307; J0131; J0690; J1100; J1170; J1885; J2250; J2405; J3010; Q9968; S2900

== ENCOUNTER → 2023-05-20 | Outpatient (REF) | payer OTHER ==
[~2023-05-20] MED LIST changes: +ACET-716 PO; +COLA100C5 PO
== END ==
LOC: M SFHCWAGY 18:01
PROVIDERS: ATTEND Obstetrics & Gynecology
DX: Z12.4 Encounter for screening for malignant neoplasm of cervix (principal)

== ENCOUNTER 2025-07-05 15:42 | Emergency (ER) | payer OTHER ==
[~2025-07-05] VITALS: Ht 167.6 cm; Wt 115.8 kg
[~2025-07-05 15:42] MED LIST changes: -IBUP1TAB6 PO; +ONDA-282 PO; -ONDA4TAB6 PO; +SFHIBU600 PO
[2025-07-05 15:57] VITALS: TEMP 99.1
[2025-07-05] MEDS ORDERED: IBUP200C89 PO (16:05)
[2025-07-05 19:26] VITALS: BP 123/78; O2SAT 100
[2025-07-05 19:48] LABS: BASO # 0.1 10^3/uL (0.0-0.2); BASO % 0.5 % (0.0-1.0); EOS # 0.1 10^3/uL (0.0-0.5); EOS % 0.9 % (0.0-3.0); LYMPH # 3.1 10^3/uL (1.5-5.0); LYMPH % 29.7 % (24.0-44.0); MONO # 0.7 10^3/uL (0.0-0.8); MONO % 6.2 % (2.0-8.0); NEUTROPHILS # 6.5 10^3/uL (1.5-8.5); NEUTROPHILS % 62.5 % (36.0-66.0); PLATELET COUNT, AUTOMATED 303 10^3/uL (150-450)
[2025-07-05 20:16] LABS: CALCIUM LEVEL 9.6 MG/DL (8.5-10.1); CARBON DIOXIDE LEVEL 27 MMOL/L (20-31); CHLORIDE LEVEL 103 MMOL/L (98-107); CREATININE FOR GFR 0.61 MG/DL (0.55-1.30); GLOMERULAR FILTRATION RATE > 90.0 (>60); POTASSIUM SERUM 4.4 MMOL/L (3.5-5.1); SODIUM LEVEL 140 MMOL/L (136-145)
[2025-07-05] MEDS: ACETAMINOPHEN 500 MG TAB PO ONE (20:41)
== END 2025-07-05 20:42 | disposition home or self-care (01) ==
LOC: M ED 15:42
DX: R51.9 Headache, unspecified (principal); F17.290 Nicotine dependence, other tobacco product, uncomplicated; Z79.899 Other long term (current) drug therapy; Z91.040 Latex allergy status